=== PATIENT | female | born 1990 | race Caucasian/White ===

== ENCOUNTER 2019-05-04 21:35 | Inpatient (IN) | payer BC ==
[~2019-05-04] VITALS: Ht 165.1 cm; Wt 79.5 kg
[2019-05-04 21:50] VITALS: BP 121/72; PULSE 80; TEMP 98.2
--- NOTE | 2019-05-04 21:50 | NUR ---
2150 G1LO 36.6 WEEK GEST TO LR4 WITH C/O SROM AT 1800 TONIGHT. EFM ON. SVE WITH POSITIVE AMNIOTRACE AND CLEAR FLUID NOTED. STATES CONTRACTIONS STARTED AROUND 1930. NOTED ON EFM EVERY 4-5 MINUTES BUT NOT FELT BY PT. ADM ASSESSMENT COMPLETED AND DR RENE NOTIFIED WITH ORDERS RECEIVED.
[2019-05-04] MEDS ORDERED: CONCEPT DHA1 CAP (21:54)
[2019-05-04] MEDS ORDERED: OSCAL 500 TAB500 MG PO (21:54)
[2019-05-04 21:55] VITALS: BP 121/72; PULSE 80; TEMP 98.2
[2019-05-04 22:50] VITALS: BP 119/75; PULSE 79
[2019-05-04 23:07] LABS: HEMOGLOBIN 12.1 g/dl (12.5-16.0); MEAN CELL VOLUME 90 fl (80.0-100.0); MEAN CORPUSCULAR HEMOGLOBIN 30 pg (27.0-31.0); MEAN CORPUSCULAR HGB CONC 34 g/dl (33.0-37.0); MEAN PLATELET VOLUME 10.2 fl (7.4-10.4); PLATELET COUNT 262 K/mm3 (130-400); RED BLOOD COUNT 4.02 M/mm3 (4.10-5.30); REDCELL DISTRIBUTION WIDTH-CV 12.6 % (11.5-14.5)
[2019-05-04 23:09] LABS: HEMATOCRIT 36.1 % (37.0-47.0)
[2019-05-04 23:30] VITALS: BP 115/65; PULSE 75
[2019-05-04 23:45] VITALS: BP 128/75; PULSE 70
--- NOTE | 2019-05-04 23:45 | NUR ---
9634 SITTING ON SIDE OF BED FOR EPIDURAL PLACEMENT. SEE ANESTHESIA RECORD FOR MORE INFO.
[2019-05-05] VITALS (28 sets, daily range): BP systolic 86–146; BP diastolic 49–108; PULSE 16–129; TEMP 98–98.3
--- NOTE | 2019-05-05 | NUR ---
0000 UNABLE TO HOGSHEAD HOOPER CONTINUOUS HEART TONES WHILE SITTING UP FOR EPID.
[2019-05-05 00:02] LABS: BAND 17 % (0-10); LYMPHOCYTE 24 % (20.0-51.0); NEUTROPHILS 51 % (42.0-75.2); PLATELET ESTIMATE NORMAL (NORMAL)
--- NOTE | 2019-05-05 03:07 | NUR ---
0307 COMPLETE DILITATION. INSTRUCTED TO PUSH WITH CONTRACTIONS.
--- NOTE | 2019-05-05 04:50 | NUR ---
0450 DR RENE CALLED TO COME TO DELIVERY. INSTRUCTED NOT TO PUSH. READIED FOR DEL 0500 DR RENE HERE. 0505 DEL VIABLE MALE OVER 2 DEGREE LAC.
--- NOTE | 2019-05-05 05:25 | NUR ---
0525 [employer]DAS FIRM. LARGE [place] BRIGHT RED BLOOD NOTED ON PAD. DR RENE AWARE. ICE PACK TO PERINEUM.
--- NOTE | 2019-05-05 05:40 | NUR ---
0540 MOTRIN 600MG PO GIVEN. VISITORS AT BEDSIDE
--- NOTE | 2019-05-05 06:15 | NUR ---
0615 ICE PACK SATURATED. FF WITH NO FREE FLOW NOTED WITH MASSAGE BUT BLOOD DRIPPING FROM PERINEUM WHEN BOTTOM LIFTED TO CHANGE ICE PACK.
--- NOTE | 2019-05-05 08:15 | NUR ---
Patient sitting at edge of bed and dangles feet. Epidural catheter removed and patient tolerates well. Patient ambulates to bathroom with standby assist and unable to void, pericare done and new gown/icepack/gown on. Patient to nursery via wheelchair to watch infants bath. 0850: Patient to room and oriented. Whiteboard and packet gone over. Plan of care discussed.
[2019-05-06 00:05] VITALS: BP 87/44; PULSE 63; TEMP 97.9
[2019-05-06 03:15] VITALS: BP 103/58; PULSE 71; TEMP 97.5
[2019-05-06 07:00] VITALS: BP 127/84; PULSE 84; TEMP 97.4
--- NOTE | 2019-05-06 07:00 | NUR ---
Rests in bed, alert. Asking questions about . Assist patient with . Denies any other needs at this time.
--- NOTE | 2019-05-06 11:10 | NUR ---
Congratulated the family on their new baby.
[2019-05-06 15:00] VITALS: BP 132/82; PULSE 64; TEMP 97.7
--- NOTE | 2019-05-06 15:00 | NUR ---
Rests in bed, alert. Request pain medication. Ibuprofen 600 mg given per request and as ordered.
[2019-05-06 19:30] VITALS: BP 127/65; PULSE 66; TEMP 98.2
[2019-05-07 08:00] VITALS: BP 122/72; PULSE 64; TEMP 98.7
--- NOTE | 2019-05-07 08:00 | NUR ---
Rests in bed, alert. baby. Informed patient of babys bilirubin is increased and will need to go under photo therapy. Patient agrees and signs form.
[2019-05-07] MEDS ORDERED: IBU600 MG PO (09:11)
[2019-05-07] MEDS ORDERED: PERCOCET 325 MG1 TA2 PO (09:11)
--- NOTE | 2019-05-07 11:00 | NUR ---
Rests in room, alert. 1130 Breastfeeds baby, denies any needs at this time.
--- NOTE | 2019-05-07 16:00 | NUR ---
1600 Dischage for border status given. Questions offered and answered. 1615 To border status, alert, ambulatory. States going to [facility]. Out of building at this time. Baby to nursery in isolet.
== END 2019-05-07 16:15 | disposition home or self-care (01) | DRG 807 ==
LOC: LDRO 21:35 → LDR 22:12 → OB 05-05 08:20
PROVIDERS: Obstetrics & Gynecology; ADMIT Student in an Organized Health Care Education/Training Program
PROC: 3E033VJ Introduction of Other Hormone into Peripheral Vein, Percutaneous Approach (ICD-10-PCS; principal; 2019-05-05)
PROC: 10E0XZZ Delivery of Products of Conception, External Approach (ICD-10-PCS; 2019-05-05)
PROC: 0KQM0ZZ Repair Perineum Muscle, Open Approach (ICD-10-PCS; 2019-05-05)
DX: O42.013 Preterm premature rupture of membranes, onset of labor within 24 hours of rupture, third trimester (principal); Z37.0 Single live birth; Z3A.36 36 weeks gestation of pregnancy; O70.1 Second degree perineal laceration during delivery
CPT/HCPCS: J2540; J2590; J7120

== ENCOUNTER 2021-02-17 11:13 | Outpatient (CLI) | payer BC ==
[~2021-02-17] VITALS: Ht 162.6 cm; Wt 87.3 kg
[~2021-02-17 11:13] MED LIST: CONCEPT DHA1 CAP; IBU600 MG PO; OSCAL 500 TAB500 MG PO; PERCOCET 325 MG1 TA2 PO
--- NOTE | 2021-02-17 11:20 | NUR ---
Pt arrives on unit ambulatory with significant other. States "cramping" since 399. Denies LOF, vaginal bleeding, and reports GFM. EFM and toco applied. VSS. Admission assessment completed. SVE per this RN /2. Dr. Biswas notified. Orders to observe x20 minutes and ok to depart without repeat SVE. Pt updated on POC. Bed locked in low position. Call light within reach.
[2021-02-17] MEDS ORDERED: CALCIUM CARBON650 M2 (11:37)
[2021-02-17 11:52] VITALS: BP 106/51; PULSE 65
== END 2021-02-17 11:50 | disposition home or self-care (01) ==
LOC: LDRO 11:13
DX: Z34.90 Encounter for supervision of normal pregnancy, unspecified, unspecified trimester (principal); Z3A.00 Weeks of gestation of pregnancy not specified

== ENCOUNTER 2021-02-25 21:58 | Outpatient (CLI) | payer BC ==
[~2021-02-25] VITALS: Ht 162.6 cm; Wt 87.3 kg
[~2021-02-25 21:58] MED LIST changes: +CALCIUM CARBON650 M2
[2021-02-25 22:30] VITALS: BP 128/66; PULSE 96; TEMP 98
--- NOTE | 2021-02-25 22:30 | NUR ---
G2L1 at 38.5 weeks gestation to LDR6 with c/o contractions. She reports contractions q5-6 minutes apart for "most of the day". She reports good movement, denies leaking of fluid or vaginal bleeding. Patient changed into gown and wedged to left side in bed. EFMs explained and applied. FHR 130 bpms and reactive. CTX q5-6 minutes, patient is not tense or breathing through them. VSS. SVE 350/-2 which is unchanged from yesterday. Plan of care reviewed with patient and spouse. Call light within reach.
--- NOTE | 2021-02-25 23:40 | NUR ---
[address] Hamtpon updated and orders to discharge home with instructions reviewed. 2340 Discharge instructions reviewed with patient and spouse. 2350 Patient discharged home.
== END 2021-02-25 23:50 | disposition home or self-care (01) ==
LOC: LDRO 21:58
DX: O62.9 Abnormality of forces of labor, unspecified (principal); Z3A.38 38 weeks gestation of pregnancy

== ENCOUNTER 2021-03-02 08:31 | Inpatient (IN) | payer BC ==
[~2021-03-02] VITALS: Ht 162.6 cm; Wt 86.8 kg
[2021-03-02] VITALS (22 sets, daily range): BP systolic 92–142; BP diastolic 53–92; PULSE 53–93; TEMP 97.3–98.2
--- NOTE | 2021-03-02 10:40 | NUR ---
1040-G2L1 39.2 week patient to LR 1 for inductioin of labor. Placed in contact isolation due to positive covid test 2 days ago. Patient reports "I thought I had a mild cold a week ago." No current symptoms it was only stuffy nose and intermittent cough. Patient Denies LOF, VB or regular contractions. Reports GFM. Assessment complete. Consents reviewed and signed. IV to right forearm per Butch, blood unable to be collected, obtained via lab draw from right AC and sent to lab. 1124- pitocin started per MD order and protocol at 2mu/min.
[2021-03-02 11:23] LABS: HEMOGLOBIN 11.6 g/dl (12.5-16.0); MEAN CELL VOLUME 89 fl (80.0-100.0); MEAN CORPUSCULAR HEMOGLOBIN 30 pg (27.0-31.0); MEAN CORPUSCULAR HGB CONC 33 g/dl (33.0-37.0); MEAN PLATELET VOLUME 10.1 fl (7.4-10.4); PLATELET COUNT 268 K/mm3 (130-400); RED BLOOD COUNT 3.92 M/mm3 (4.10-5.30); REDCELL DISTRIBUTION WIDTH-CV 13.3 % (11.5-14.5)
[2021-03-02 12:06] LABS: BAND 5 % (0-10); EOSINOPHIL 1 % (0-4); LYMPHOCYTE 13 % (20.0-51.0); METAMYELOCYTE 1 % (0-0); MYELOCYTE 2 % (0-0); NEUTROPHILS 69 % (42.0-75.2); PLATELET ESTIMATE NORMAL (NORMAL)
--- NOTE | 2021-03-02 12:40 | NUR ---
1240-ZARA Jiang to room. Patient sitting upright for epidural placement. Difficulty maintiaining continuous tracing of FHR due to maternal positioning. 1249-Test dose administered by ZARA Jiang. Patient tolerated well. VSS. Repositioned LL. 1310-FHR decel with contraction. Slow return to baseline over [address] Hampton on unit. SVE with garzon catheter placement at this time. /-2, updated. Rpositoned high fowlers.
--- NOTE | 2021-03-02 13:53 | NUR ---
1353-Patient feels pressure, SVE 10/100/+1, MD to room. 1400-Patient begins to push with contractions. Moves Vertex well. 1406-Spontaneous delivery of head by Dr. Hampton immediately followed by body. Nuchal cord x1 delivered with and reduced.Viable male infant to mothers abdomen Cord clamped x2 by MD and cut by FOB. Care of infant assumed by WISAM Herrera. Apgars 9/9/9. 1410-Spontaneous delivery of intact placenta by MD. Fundal massage firm. Lochia WNL. EBL 200ml. Pitocin bolus per MD order and protocol. Rachel care provided. Updated on plan of care and safety.
[2021-03-03 03:00] VITALS: BP 118/81; PULSE 62; TEMP 98.3
[2021-03-03 06:57] VITALS: BP 111/73; PULSE 66; TEMP 98.8
[2021-03-03] MEDS ORDERED: PERCOCET 325 MG1 TA2 PO (08:20)
[2021-03-03] MEDS ORDERED: IBU800 M1 PO (08:20)
== END 2021-03-03 17:38 | disposition home or self-care (01) | DRG 805 ==
LOC: OB 08:31 → LDR 10:46
PROVIDERS: ADMIT Student in an Organized Health Care Education/Training Program
PROC: 10907ZC Drainage of Amniotic Fluid, Therapeutic from Products of Conception, Via Natural or Artificial Opening (ICD-10-PCS; principal; 2021-03-02)
PROC: 10E0XZZ Delivery of Products of Conception, External Approach (ICD-10-PCS; 2021-03-02)
PROC: 0KQM0ZZ Repair Perineum Muscle, Open Approach (ICD-10-PCS; 2021-03-02)
PROC: 3E033VJ Introduction of Other Hormone into Peripheral Vein, Percutaneous Approach (ICD-10-PCS; 2021-03-02)
DX: O98.52 Other viral diseases complicating childbirth (principal); U07.1 COVID-19; Z37.0 Single live birth; O70.1 Second degree perineal laceration during delivery; Z3A.39 39 weeks gestation of pregnancy
CPT/HCPCS: J2590; J7120

== ENCOUNTER → 2021-03-12 | Outpatient (CLI) | payer BC ==
[~2021-03-12] MED LIST changes: +IBU800 M1 PO
--- NOTE | 2021-03-12 14:30 | NUR ---
Pt, Camelia Kang, presents for outpatient consult with 10 day old baby boy, Ellen Kang. She states Karel does not latch. Karel was born on [birth year] and weighed 7#10oz (3460 gms). However, his weight the following day was 7#12.9oz (3540 gms). Pt states Karel weighed 7#10oz at his appt with Dr. Torres on 03/05/21. Today Karel weighs 7#11.6oz (3504 gms). Pt reports feedings are about every 3 hours. She tries except at night time. She then offers him 2-3oz EBM after the breast attempt unless she feels he stayed on fairly well. She follows this with pumping and she collects ~5oz each pumping. Today Karel looks like he will latch but once he has the breast in mouth, he only has a couple jaw strokes and then he just sits with the nipple in his mouth. Nipple presentation is excellent, milk supply is abundant. We attempt to get him to latch with the nipple shield, but again no latch. LC does suck evaluation, Karel has little effort to suck, has a lot of tongue movement but does not keep it across the gum. LC provides Karel 50 ml by bottle; his effort at the bottle is still slow and weak but he eventually gets the volume consumed. His ornamental metal fabricator apprentice on the bottle nipple is not strong. Impression: Weak suck. Because of the weight gain (1.6oz) over the last 7 days, pt is advised to make an appt with Dr. Torres by the end of this week to evaluate weights on the same scale and to get her input on Karel's effort. POC: Continue offering breast, supplement 2-3 oz EBM per feeding, and pumping. Follow any changes in feeding plan per Dr. Torres's input. F/U: Dr. Torres this week. Report to this LC after. Questions invited and answered.
== END ==
LOC: LAC 12:54
DX: Z39.1 Encounter for care and examination of lactating mother (principal); Z71.89 Other specified counseling